=== PATIENT | male | born 1990 | race Caucasian/White ===

== ENCOUNTER 2020-07-05 19:16 | Inpatient (IN) | payer OTHER ==
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
[2020-07-05 21:17] LABS: Amphetamine Screen,Urine Not Detected (NotDetected); Barbiturate Screen,Urine Not Detected (NotDetected); Benzodiazepines Screen,Urine Not Detected (NotDetected); Cocaine Screen,Urine Not Detected (NotDetected); Methadone Screen, Urine Not Detected (NotDetected); Opiate Screen,Urine Not Detected (NotDetected); Oxycodone Screen, Urine Not Detected (NotDetected); Phencyclidine Screen,Urine Not Detected (NotDetected); Tricyclic Antidepressant,Urine Not Detected (NotDetected); Urn Cannabinoid Scrn Not Detected (NotDetected)
[2020-07-05] MEDS ORDERED: LORazepam 2 MG/ML INJ IM STA (22:49)
[2020-07-05] MEDS ORDERED: diphenhydrAMINE 50 MG/ML 1 ML VIAL IM STA (22:49)
[2020-07-05] MEDS ORDERED: HALOPERIDOL LACTATE 5 MG/ML 1 ML VIAL IM STA (22:49)
[2020-07-06 01:48] LABS: Basophils # (A) 0.1 k/uL (0-0.2); Basophils % (A) 0 %; Eosinophils # (A) 0.4 k/uL (0-0.7); Eosinophils % (A) 2 %; HGB 15.6 gm/dL (13.0-17.5); Lymphocytes # (A) 2.8 k/uL (1.0-4.8); Lymphocytes % (A) 17 %; MCH 28.8 pg (25.0-35.0); MCHC 32.4 g/dL (31.0-37.0); MCV 88.9 fL (80.0-100.0); Mean Platelet Volume 7.6; Monocytes % (A) 6 %; Neutrophils # (A) 11.8 k/uL (1.3-7.7); Neutrophils % (A) 72 %; Platelet Count 207 k/uL (150-450); WBC 16.4 k/uL (3.8-10.6)
[2020-07-06 02:09] LABS: ALT 36 U/L (4-49); AST 43 U/L (17-59); Acetaminophen <10.0 ug/mL; African American GFR (CKD) >90 (>60 ml/min/1.73 sqM); Albumin 4.4 g/dL (3.5-5.0); Alkaline Phosphatase 71 U/L (38-126); Anion Gap 8 mmol/L; Blood Urea Nitrogen 13 mg/dL (9-20); Calcium 9.3 mg/dL (8.4-10.2); Carbon Dioxide 27 mmol/L (22-30); Chloride 103 mmol/L (98-107); Glucose 109 mg/dL (74-99); Non-African American GFR(CKD) >90 (>60 ml/min/1.73 sqM); Potassium 3.9 mmol/L (3.5-5.1); Salicylate <1.0 mg/dL; Sodium 138 mmol/L (137-145); Total Bilirubin 0.6 mg/dL (0.2-1.3); Total Protein 7.4 g/dL (6.3-8.2)
[2020-07-06 03:42] LABS: Appearance,Urine Cloudy (Clear); Bilirubin,Urine Negative (Negative); Blood,Urine Negative (Negative); Calcium Oxalate Crystals,Urine Many /hpf; Color,Urine Yellow; Glucose,Urine (UA) Negative (Negative); Hyaline Casts,Urine 86 /lpf (0-2); Ketones,Urine Negative (Negative); Leukocyte Esterase,Urine Negative (Negative); Mucus,Urine Moderate /hpf; Nitrite,Urine Negative (Negative); Protein,Urine 1+ (Negative); RBC,Urine 2 /hpf (0-5); Specific Gravity,Urine 1.027 (1.001-1.035); Squamous Epithelial Cell,Urine <1 /hpf (0-4); WBC,Urine 4 /hpf (0-5)
[2020-07-07] MEDS ORDERED: MAGNESIUM HYDROXIDE 2,400 MG/10 ML CUP PO PRN (14:05)
[2020-07-07] MEDS ORDERED: ZIPRASIDONE 20 MG VIAL IM PRN (14:05)
[2020-07-07] MEDS ORDERED: MAG HYDROX/AL HYDROX/SIMETH 30 ML CUP PO PRN (14:05)
[2020-07-07] MEDS ORDERED: LORazepam 1 MG TAB PO PRN (14:05)
[2020-07-07] MEDS ORDERED: ACETAMINOPHEN TAB 325 MG TAB PO PRN (14:05)
[2020-07-07] MEDS ORDERED: LORazepam 2 MG/ML INJ IM PRN (14:06)
[2020-07-08] MEDS ORDERED: IPRATROPIUM-ALBUTEROL 3 ML NEB INHALATION PRN (02:34)
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
[2020-07-08] MEDS ORDERED: cloNIDine HCL 0.1 MG TAB PO PRN (02:35)
[2020-07-08 11:28] LABS: Basophils # (A) 0.1 k/uL (0-0.2); Basophils % (A) 1 %; Eosinophils # (A) 0.4 k/uL (0-0.7); Eosinophils % (A) 4 %; HCT 51.7 % (39.0-53.0); HGB 17.5 gm/dL (13.0-17.5); Lymphocytes # (A) 2.4 k/uL (1.0-4.8); Lymphocytes % (A) 20 %; MCH 30.6 pg (25.0-35.0); MCHC 33.8 g/dL (31.0-37.0); MCV 90.4 fL (80.0-100.0); Mean Platelet Volume 7.4; Monocytes # (A) 0.6 k/uL (0-1.0); Monocytes % (A) 5 %; Neutrophils # (A) 8.3 k/uL (1.3-7.7); Neutrophils % (A) 67 %; Platelet Count 250 k/uL (150-450); RBC 5.72 m/uL (4.30-5.90); RDW 12.6 % (11.5-15.5); WBC 12.3 k/uL (3.8-10.6)
[2020-07-08 11:38] LABS: ALT 49 U/L (4-49); AST 62 U/L (17-59); African American GFR (CKD) >90 (>60 ml/min/1.73 sqM); Albumin 4.9 g/dL (3.5-5.0); Alkaline Phosphatase 80 U/L (38-126); Anion Gap 8 mmol/L; Blood Urea Nitrogen 20 mg/dL (9-20); Calcium 9.8 mg/dL (8.4-10.2); Carbon Dioxide 29 mmol/L (22-30); Chloride 102 mmol/L (98-107); Cholesterol 199 mg/dL (<200); Glucose 97 mg/dL (74-99); HDL Cholesterol 52 mg/dL (40-60); LDL Cholesterol,Calculated 104 mg/dL (0-99); Non-African American GFR(CKD) >90 (>60 ml/min/1.73 sqM); Potassium 4.6 mmol/L (3.5-5.1); Sodium 139 mmol/L (137-145); Total Bilirubin 1.1 mg/dL (0.2-1.3); Total Protein 8.4 g/dL (6.3-8.2); Triglycerides 214 mg/dL (<150)
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
[2020-07-08 21:09] LABS: Hemoglobin A1C 5.4 % (4.0-6.0)
[2020-07-09 07:11] VITALS: RESP 16
--- NOTE | 2020-07-09 11:25 | P.PN ---
Progress Note - Text Progress Note Date: 07/09/20 I reviewed medical records ,did interview patient and case was discussed in treatment team No aggressive or violent behavior Slept 6 hours Interacting with peers and participating in groups Did not require any PRN Reviewed medical consult:((occasional elevated blood pressure close monitor of vital signs Q8 hours reported decrease lung capacity PRN mani storey)) Reviewed labs: WBC:12.3,Neutrophils:8.3,Triglycerides :214 but total Cholesterol :199 TODAY VITALS: temp:97.6,P:73,R:16,BP:121/79 INTERVAL : patient was walking in [place] and did agree to follow me to office ,he stated that his brother is willing to let patient to stay with him after discharge,patient denies any feeling of hopeless or helpless ,endorses guilt feeling related to his behavior during teens,still reluctant to start any psychotropic medication and does beleive that counseling will help him to get over past traumatic experiences,denies any nightmares or flashbacks Mental status exam: Patient was wearing his own clothing ,hygiene and grooming are fair, ,denies any hallucination or delusional thinking,, alert to person and place ,denies suicidal or homicidal ideation ,insight and judgment are good ASSESSMENT : Adjustment disorder with depressed mood ,PTSD PLAN: Patient continues to meet criteria for inpatient psychiatric admission .encourage groups participation ,SW on board for discharge planning
[2020-07-10 07:04] VITALS: BP 119/73; PULSE 80; TEMP 98.2
[2020-07-10] MEDS ORDERED: INFLUENZA VACCINE (6 MOS+) 60 MCG/0.5 ML SYRINGE IM ONE (10:00)
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
== END 2020-07-10 14:07 | disposition home or self-care (01) | DRG 881 ==
LOC: EC 19:16 → 3MHU 07-07 13:48
PROVIDERS: ADMIT Psychiatry & Neurology Psychiatry; ATTEND Psychiatry & Neurology Psychiatry
DX: F43.21 Adjustment disorder with depressed mood (principal); F43.10 Post-traumatic stress disorder, unspecified; F60.9 Personality disorder, unspecified; H91.90 Unspecified hearing loss, unspecified ear; R03.0 Elevated blood-pressure reading, without diagnosis of hypertension; J98.4 Other disorders of lung; Z20.828 Contact with and (suspected) exposure to other viral communicable diseases; Z56.0 Unemployment, unspecified; Z91.410 Personal history of adult physical and sexual abuse; Z91.018 Allergy to other foods
CPT/HCPCS: 36415; 80053; 80061; 80306; 80329; 81001; 83036; 83520; 84443; 85025; 87635; 90686; 96372; 99285